=== PATIENT | male | born 1975 | race Caucasian/White ===

== ENCOUNTER 2017-08-10 19:09 | Emergency (ER) | payer OTHER ==
[2017-08-10] MEDS ORDERED: NS 1,000 ML IV ONE ×2 (20:03→21:13)
[2017-08-10] MEDS ORDERED: ONDANSETRON 4 MG/2 ML VIAL IVP ONE (20:03)
--- NOTE | 2017-08-10 20:03 | EDPHY ---
General Time Seen by Provider: 08/10/17 19:55 Narrative: CHIEF COMPLAINT: Abdominal pain after eating HISTORY OF PRESENT ILLNESS: Patient complains of right upper quadrant abdominal pain. This started around 11:00 a.m., 30 min after eating a breakfast burrito. He describes it as "I felt tension in my abdomen," pointing to his right upper quadrant. It has been constant duration. It was moderate to severe at 11:00 a.m.. It is not mild-to- moderate. He has not attempted any other intake of solids. He has a minimal water intake. He has been very nauseated but has not vomited. No fever. No chills. No lower abdominal pain. No urinary complaints. The pain does occasionally radiate to the right flank. His history of nephrolithiasis but this pain is very different to him. He has had this pain 2-3 times over the past 2-3 weeks, but he has not yet been evaluated for this. No abdominal pathology or surgical history. No other associated complaints or modifying factors. REVIEW OF SYSTEMS: Ten systems reviewed and are negative unless otherwise noted in the HPI PCP: None SPECIALISTS: None PAST MEDICAL HISTORY: Nephrolithiasis PAST SURGICAL HISTORY: No surgical history SOCIAL HISTORY: Nonsmoker. Occasional alcohol use. Occasional marijuana use. 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 Well-developed and well nourished Head: normocephalic, atraumatic Eyes: Pupils equal and round, no conjunctival pallor or injection ENT, Mouth: Mucous membranes moist. Uvula midline. Airway widely patent Neck: Normal inspection, supple, non-tender Respiratory: Lungs are clear to auscultation. No wheeze, rhonchi or crackles Cardiovascular: Rate is 100 beats per minute. Regular rhythm. No murmur Gastrointestinal: Abdomen is soft and nondistended. There is tenderness in the right upper quadrant consistent with positive Ochoa sign. Negative McBurney. Negative Rovsing. No guarding. No tympany. No rigidity. Bowel sounds are symmetric in all 4 quadrants. Minimal right CVA tenderness. Back: non-tender, no bony abnormalities Neurological: A&O, nonfocal, normal gait Skin: Warm and dry, no rash. No petechiae or purpura Extremities: Nontender, no pedal edema Psychiatric: Mood and affect normal DIFFERENTIAL DIAGNOSES: Including but not limited to cholecystitis, cholelithiasis, pancreatitis, gallstone pancreatitis, colitis, renal colic, appendicitis MDM: 8:00 p.m. Right upper quadrant postprandial pain that has persisted over the past 9 hr. His abdominal exam is consistent with pain at right upper quadrant with positive Ochoa sign. He also has some pain right flank, thus I will await urinalysis. He will likely need ultrasound release right upper quadrant and possibly retroperitoneum. Vital signs are within normal limits with mild tachycardia. He is in no acute distress. He does not have a surgical abdomen at this time. Laboratory studies are pending. I have ordered IV fluid nausea medication. He is not requiring pain medication this time. 9:15 p.m. Laboratory studies within normal limits. Urinalysis shows ketones but no blood. I have ordered ultrasound right upper quadrant to evaluate his gallbladder. I have ordered further IV fluid due to the ketones in the urine. 10:55 p.m. Notified by radiologist of the ultrasound findings. No acute findings noted. Recommend consideration of HIDA if patient remains symptomatic. I have re- evaluated the patient. His pain has improved without narcotic treatment here. He is minimally nauseated. We discussed further evaluation with CT scan the abdomen pelvis but he prefers to delay this. We discussed discharge home with clear liquid diet as tolerated re-evaluation in 24 hr if no improvement. I also offered him admission to the hospital at this time he is declining. He would like to attempt a p.o. Trial. 11:30 p.m. Patient is attempting p.O. Trial at this time. 11:55 p.m. Successful p.o. Trial with no vomiting. He has minimal pain at this time. We discuss admission to the hospital versus discharge home and he would like to go home. I do feel he is stable to do so. He will need to adhere to clear liquid diet and advance very slowly as tolerated. We discussed strict ED precautions if his pain returns overnight or if he begins to vomit again. We discussed the need for follow-up early this week for likely HIDA scan. We also discussed return to ED precautions for any worsening pain, fever or lower abdominal pain that would warrant return to emergency department and likely further imaging per he is comfortable this plan and would like to go home and is discharged in stable condition. SUPERVISION: Patient was independently examined, but I discussed the case with my secondary supervising physician Dr. Mallory - History Smoking Status: Never smoked - Objective Vital Signs: Initial Vital Signs Temperature (C) 98.8 F 08/10/17 19:42 Heart Rate 100 08/10/17 19:42 Respiratory Rate 18 08/10/17 19:42 Blood Pressure 112/81 H 08/10/17 19:42 O2 Sat (%) 97 08/10/17 19:42 O2 Delivery Mode Room Air Allergies/Adverse Reactions: No Known Allergies Allergy (Verified 08/10/17 19:42) Home Medications: Medication Instructions Recorded Promethazine HCl [Phenergan 25mg 25 mg PO Q8 PRN #12 tab 08/10/17 (*)] Laboratory Results: Laboratory Results 08/10/17 20:00 08/10/17 20:00 Medications Given: Discontinued Medications Sodium Chloride (Ns) 1,000 mls @ 0 mls/hr IV EDNOW ONE; Wide Open PRN Reason: Protocol Stop: 08/10/17 20:04 Last Admin: 08/10/17 20:09 Dose: 1,000 mls Sodium Chloride (Ns) 1,000 mls @ 0 mls/hr IV EDNOW ONE; Wide Open PRN Reason: Protocol Stop: 08/10/17 21:14 Last Admin: 08/10/17 22:52 Dose: 1,000 mls Ondansetron HCl (Zofran) 4 mg IVP EDNOW ONE Stop: 08/10/17 20:04 Last Admin: 08/10/17 20:09 Dose: 4 mg Promethazine HCl (Phenergan 25 Mg Prepack #4) 1 btl TAKEHOME EDNOW ONE Stop: 08/10/17 23:58 Last Admin: 08/11/17 00:01 Dose: 1 btl Departure - Departure Disposition: Home, Routine, Self-Care Clinical Impression: Right upper quadrant abdominal pain Condition: Good Instructions: Promethazine (By mouth), Biliary Colic (ED), Gallbladder Ejection Fraction (DC), Acute Abdominal Pain (ED) Additional Instructions: 1. Clear liquid diet with increase fluid intake 2. Strict ED precautions for return of pain, fever, vomiting, migration of abdominal pain 3. Return to emergency department in 24 hr if you do not have resolution of your symptoms 4. Contact the on-call primary care physician and surgeon on Sunday for outpatient follow-up Referrals: Brianna Jones MD [Medical Doctor] - As per Instructions Angel Graham MD [Medical Doctor] - As per Instructions Prescriptions: Promethazine HCl [Phenergan 25mg (*)] 25 mg PO Q8 PRN #12 tab PRN Reason: Nausea/Vomiting, Use 1st
[2017-08-10 20:10] LABS: PLATELET COUNT 219 10^3/uL (150-400)
[2017-08-10] MEDS ORDERED: PROMETHAZINE 25 MG PREPACK #4 BTL TAKEHOME ONE (23:57)
[2017-08-11 00:05] VITALS: BP 117/68
== END 2017-08-11 00:05 | disposition home or self-care (01) ==
DX: R10.11 Right upper quadrant pain (principal); E86.9 Volume depletion, unspecified
CPT/HCPCS: 96374; J2405

== ENCOUNTER → 2017-08-20 | Outpatient (CLI) | payer OTHER | LOC: FIMAGING 09:23 | PROVIDERS: ATTEND Family Medicine | DX: K82.8 Other specified diseases of gallbladder (principal) | CPT/HCPCS: 78227; A9537 ==